=== PATIENT | male | born 1975 | race Hispanic/Latino ===

== ENCOUNTER → 2019-01-13 | Outpatient (CLI) | payer OTHER ==
[~2019-01-13] MED LIST: ATROVENT HFA12.9 GM INH; KEFLEX500 MG PO; LOSARTAN POTASS25 MG PO; METOPROLOL TART25 MG PO; VERAPAMIL ER240 M1 PO; XANAX0.25 MG PO
--- NOTE | 2019-01-13 11:44 | Diagnostic Imaging Report ---
EXAMINATION: CHEST 2 VIEWS INDICATION: Hiccup, epigastric pain. COMPARISON: None FINDINGS: TUBES and LINES: None. LUNGS: Lungs are not well inflated. Mild interstitial opacities on the left. Mild patchy bibasilar opacities, likely atelectasis. There is no evidence of pneumonia or pulmonary edema. PLEURA: No pleural effusion or pneumothorax. HEART AND MEDIASTINUM: The cardiomediastinal silhouette is unremarkable. BONES AND SOFT TISSUES: No acute osseous abnormality. UPPER ABDOMEN: No free air under the diaphragm. IMPRESSION: No acute radiographic abnormality. Signed by: Dr. Johanna Holly MD on 01/13/2019 11:41 AM
--- NOTE | 2019-01-13 15:00 | Diagnostic Imaging Report ---
EXAM: US ABDOMEN COMPLETE INDICATION: Epigastric pain. COMPARISON: None TECHNIQUE: Transverse and longitudinal vaughn scale and color doppler sonographic images of the abdomen were obtained. FINDINGS: LIVER 18 cm in the right midclavicular line. Normal echogenicity of the liver with normal contour, no masses. SPLEEN 13.7 cm in maximum diameter. Normal echogenicity, no masses. GALLBLADDER No pericholecystic fluid. There is gallbladder sludge and cholelithiasis. There is mild gallbladder wall thickening measuring 3.6 mm. Gallbladder is partially decompressed. Negative reported sonographic Ramirez's sign. BILE DUCTS No intra nor extra-hepatic biliary dilation. Common bile duct measures 0.3 cm PANCREAS: Visualized portions are normal. RIGHT KIDNEY: 13.0 cm Echogenicity: Normal Collecting System: No hydronephrosis Stones: None Cyst/Mass: None LEFT KIDNEY: 13.0 cm Echogenicity: Normal Collecting System: No hydronephrosis Stones: None Cyst/Mass: None VESSELS: Aorta: Visualized portions are within normal size limits Inferior Vena Cava: Visualized portions are normal Main Portal Vein: 0.8 cm, normal size with hepatopetal flow. FREE FLUID: None IMPRESSION: Hepatomegaly. Gallbladder sludge and cholelithiasis. Mild gallbladder wall thickening, which may reflect decompression. No specific evidence of cholecystitis. If there is clinical concern for cholecystitis, suggest follow-up ultrasound. Signed by: Dr. Johanna Holly MD on 01/13/2019 2:56 PM
== END ==
LOC: US 10:33
PROVIDERS: ATTEND Internal Medicine
DX: R06.6 Hiccough (principal); R10.13 Epigastric pain; I35.9 Nonrheumatic aortic valve disorder, unspecified
CPT/HCPCS: 71046; 76700

== ENCOUNTER → 2019-05-15 | Outpatient (CLI) | payer OTHER ==
--- NOTE | 2019-05-15 15:06 | Diagnostic Imaging Report ---
Abdominal ultrasound. History: Abnormal LFTs. Comparison: 01/13/2019. Discussion: Transverse and longitudinal images of the abdomen were obtained demonstrating a liver of normal size and echogenicity measuring 16.2 cm in length. The portal vein is patent with hepatopetal flow and is within normal limits measuring 9 mm in diameter. The biliary tree is within normal limits with the common bile duct measuring 2 mm in diameter. The gallbladder contains shadowing stones stones and sludge without evidence of wall thickening or pericholecystic fluid. The sonographic Ramirez's sign was negative. The kidneys are normal in size and echogenicity bilaterally without evidence of hydronephrosis, stones, or mass. The right kidney measures 11.4 cm and the left kidney measures 13 cm in length. The spleen is normal in size and appearance measuring 12.9 cm in length. The pancreatic head and body are visualized and are normal in appearance. The abdominal aorta and IVC are within normal limits. There is no evidence of free fluid. IMPRESSION: Cholelithiasis and gallbladder sludge without sonographic evidence of cholecystitis. Otherwise unremarkable exam. Signed by: Laurent Clemons on 05/15/2019 3:03 PM
== END ==
LOC: US 13:50
PROVIDERS: ATTEND Internal Medicine
DX: R74.8 Abnormal levels of other serum enzymes (principal)
CPT/HCPCS: 76700